=== PATIENT | male | born 1945 | race Caucasian/White ===

== ENCOUNTER → 2020-08-29 | Outpatient (CLI) | payer SELFPAY ==
[~2020-08-29] MED LIST: BACL10TA PO; CIPR-278 PO; OMEP40CA21 PO
== END | disposition home or self-care (01) ==
LOC: OIH 15:25
PROVIDERS: ATTEND Internal Medicine Cardiovascular Disease
DX: Z13.6 Encounter for screening for cardiovascular disorders (principal)
CPT/HCPCS: 75571